=== PATIENT | male | born 1955 | race Caucasian/White ===

== ENCOUNTER 2022-08-19 14:17 | Inpatient (IN) | payer MEDICARE ==
[~2022-08-19] VITALS: Ht 177.8 cm; Wt 77.1 kg
[2022-08-19] MEDS ORDERED: LACTATED RINGER'S 1,000 ML INJ ONE (14:45)
[2022-08-19 14:53] LABS: BASOPHILS # (AUTO) 0.1 (0.0-0.1); EOSINOPHILS # (AUTO) 0.5 (0.0-0.4); EOSINOPHILS % 5.2 % (0.0-6.0); HEMATOCRIT 35.9 % (38.2-49.6); HEMOGLOBIN 11.4 g/dL (14.0-18.0); LYMPHOCYTES # (AUTO) 0.8 (1.0-3.2); LYMPHOCYTES % 7.7 % (18.0-39.1); MEAN CORPUSCULAR HEMOGLOBIN 27.6 pg (28-32); MEAN CORPUSCULAR HGB CONC 31.8 g/dL (31-35); MEAN CORPUSCULAR VOLUME 86.9 fL (81-99); MONOCYTES # (AUTO) 0.7 (0.2-0.8); MONOCYTES % 7.1 % (4.4-11.3); NEUTROPHILS # (AUTO) 8.1 (2.1-6.9); NEUTROPHILS % 78.7 % (38.7-80.0); PLATELET COUNT 508 x10e3/uL (140-360); RED BLOOD COUNT 4.13 x10e6/uL (4.3-5.7)
[2022-08-19 15:22] LABS: ALBUMIN 3.5 g/dL (3.5-5.0); ALBUMIN/GLOBULIN RATIO 1.1 (0.8-2.0); ANION GAP 14.5 mmol/L (8-16); CALCIUM 9.9 mg/dL (8.4-10.2); CREATININE, SERUM 2.48 mg/dL (0.72-1.25); POTASSIUM 3.5 mmol/L (3.5-5.1)
[2022-08-19] MEDS ORDERED: ASPIRIN 81 MG CHEW TAB PO ONE (16:00)
[2022-08-19 17:05] VITALS: PULSE 99; RESP 18; O2SAT 98
[2022-08-19] MEDS: SODIUM CHLORIDE 0.9% 1000ML 1,000 ML IV SCH (18:16)
[2022-08-19 20:00] VITALS: BP 166/80; PULSE 97; RESP 21; TEMP 98; O2SAT 100
[2022-08-19 20:20] VITALS: PULSE 97; RESP 18; O2SAT 100
[2022-08-19 21:56] VITALS: BP 166/80; PULSE 97; RESP 21; TEMP 98; O2SAT 100
[2022-08-19 22:04] VITALS: BP 166/80; PULSE 97; RESP 21; TEMP 98; O2SAT 100
[2022-08-19] MEDS ORDERED: COUMADIN (22:25)
[2022-08-19] MEDS: CLOPIDOGREL BISULFATE 75 MG TAB PO SCH (23:28)
[2022-08-19] MEDS ORDERED: SIMETHICONE 80 MG CHEW PO PRN (23:30)
[2022-08-19] MEDS ORDERED: ACETAMINOPHEN 325 MG TAB PO PRN (23:30)
[2022-08-19] MEDS ORDERED: DOCUSATE SODIUM 100 MG CAP PO PRN (23:30)
[2022-08-19] MEDS ORDERED: DEXTROSE 50% SYRINGE 50 ML IV PRN (23:30)
[2022-08-19] MEDS ORDERED: ONDANSETRON HCL INJ 2MG/ML 2ML 2 MG/ML VIAL IV PRN (23:30)
[2022-08-19] MEDS ORDERED: MELATONIN 3 MG TAB PO PRN (23:30)
[2022-08-20] VITALS (8 sets, daily range): BP systolic 124–154; BP diastolic 53–82; PULSE 64–86; RESP 17–23; TEMP 97.6–98; O2SAT 96–100
[2022-08-20] MEDS: SODIUM CHLORIDE 0.9% 1000ML 1,000 ML IV SCH (05:56)
[2022-08-20 06:21] LABS: CHOL/HDL RATIO 3.4 (3.9-4.7)
[2022-08-20 06:31] LABS: CLARITY,URINE CLEAR (CLEAR); COLOR,URINE YELLOW (YELLOW)
[2022-08-20 06:32] LABS: KETONES,URINE NEGATIVE (NEGATIVE); LEUKOCYTE ESTERASE ,URINE NEGATIVE (NEGATIVE); NITRITE,URINE NEGATIVE (NEGATIVE); PROTEIN,URINE DIPSTICK TRACE (NEGATIVE); URINE UROBILINOGEN 0.2 mg/dL (0.2 - 1)
[2022-08-20 06:33] LABS: AMPHETAMINES SCREEN,URINE POSITIVE (NEGATIVE); PHENCYCLIDINE SCREEN,URINE NEGATIVE (NEGATIVE)
[2022-08-20 06:34] LABS: BENZODIAZEPINES SCREEN,URINE NEGATIVE (NEGATIVE)
[2022-08-20 07:10] LABS: WBC,URINE (MAN) 0-5 /HPF (0-5)
[2022-08-20 07:11] LABS: BACTERIA,URINE MODERATE /HPF; RBC,URINE 0-5 /HPF (0-5)
[2022-08-20] MEDS: INSULIN REGULAR, HUMAN 100 UNIT/1 ML SQ SCH ×4 (07:30→21:00)
[2022-08-20 08:57] LABS: BASOPHILS # (AUTO) 0.1 (0.0-0.1); BASOPHILS % 1.6 % (0.0-1.0); EOSINOPHILS # (AUTO) 0.6 (0.0-0.4); EOSINOPHILS % 8.3 % (0.0-6.0); HEMATOCRIT 36.6 % (38.2-49.6); HEMOGLOBIN 11.6 g/dL (14.0-18.0); LYMPHOCYTES # (AUTO) 1.3 (1.0-3.2); LYMPHOCYTES % 17.9 % (18.0-39.1); MEAN CORPUSCULAR HEMOGLOBIN 27.6 pg (28-32); MEAN CORPUSCULAR HGB CONC 31.7 g/dL (31-35); MEAN CORPUSCULAR VOLUME 87.1 fL (81-99); MONOCYTES # (AUTO) 0.7 (0.2-0.8); MONOCYTES % 8.8 % (4.4-11.3); NEUTROPHILS # (AUTO) 4.7 (2.1-6.9); NEUTROPHILS % 63.1 % (38.7-80.0); PLATELET COUNT 405 x10e3/uL (140-360); RED CELL DISTRIBUTION WIDTH 16.1 % (11.7-14.4)
[2022-08-20 09:10] LABS: ANION GAP 16.3 mmol/L (8-16); CALCIUM 9.5 mg/dL (8.4-10.2); CREATININE, SERUM 1.46 mg/dL (0.72-1.25); POTASSIUM 4.3 mmol/L (3.5-5.1)
[2022-08-20] MEDS ORDERED: CLOPIDOGREL BISULFATE 75 MG TAB PO ONE (09:30)
[2022-08-20] MEDS: ASPIRIN 81 MG ENTERIC COATED PO SCH (09:45)
[2022-08-20] MEDS: FAMOTIDINE 20 MG TAB PO SCH ×2 (09:45→16:39)
[2022-08-20] MEDS: METOPROLOL TARTRATE 25 MG TAB PO SCH ×2 (09:46→21:11)
[2022-08-20 14:13] LABS: INR 1.25; PROTHROMBIN TIME 16.2 seconds (11.9-14.5)
[2022-08-20] MEDS: ENOXAPARIN SOD INJ 40 MG/0.4 ML SYR SC SCH (16:40)
[2022-08-20] MEDS: WARFARIN SOD 5 MG TAB PO SCH (16:42)
[2022-08-20] MEDS: ATORVASTATIN 40 MG TAB PO SCH (21:07)
[2022-08-21] VITALS (8 sets, daily range): BP systolic 133–160; BP diastolic 62–91; PULSE 60–68; RESP 17–21; TEMP 97.8–98.6; O2SAT 95–97
[2022-08-21 05:49] LABS: BASOPHILS # (AUTO) 0.1 (0.0-0.1); BASOPHILS % 1.7 % (0.0-1.0); EOSINOPHILS # (AUTO) 0.6 (0.0-0.4); EOSINOPHILS % 7.8 % (0.0-6.0); HEMATOCRIT 36.7 % (38.2-49.6); HEMOGLOBIN 11.2 g/dL (14.0-18.0); LYMPHOCYTES % 12.4 % (18.0-39.1); MEAN CORPUSCULAR HEMOGLOBIN 27.6 pg (28-32); MEAN CORPUSCULAR HGB CONC 30.5 g/dL (31-35); MEAN CORPUSCULAR VOLUME 90.4 fL (81-99); MONOCYTES # (AUTO) 0.7 (0.2-0.8); MONOCYTES % 8.5 % (4.4-11.3); NEUTROPHILS # (AUTO) 5.3 (2.1-6.9); NEUTROPHILS % 69.3 % (38.7-80.0); PLATELET COUNT 423 x10e3/uL (140-360); RED BLOOD COUNT 4.06 x10e6/uL (4.3-5.7); RED CELL DISTRIBUTION WIDTH 15.9 % (11.7-14.4)
[2022-08-21 05:56] LABS: INR 1.26; PROTHROMBIN TIME 16.3 seconds (11.9-14.5)
[2022-08-21 06:21] LABS: ALBUMIN/GLOBULIN RATIO 1.1 (0.8-2.0); ANION GAP 9.4 mmol/L (8-16); CALCIUM 9.3 mg/dL (8.4-10.2); CREATININE, SERUM 1.14 mg/dL (0.72-1.25); POTASSIUM 4.4 mmol/L (3.5-5.1)
[2022-08-21 06:45] LABS: THYROID STIMULATING HORMONE 0.155 uIU/mL (0.350-4.940)
[2022-08-21] MEDS: INSULIN REGULAR, HUMAN 100 UNIT/1 ML SQ SCH ×4 (07:30→19:59)
[2022-08-21] MEDS: CLOPIDOGREL BISULFATE 75 MG TAB PO SCH (08:40)
[2022-08-21] MEDS: ASPIRIN 81 MG ENTERIC COATED PO SCH (08:40)
[2022-08-21] MEDS: METOPROLOL TARTRATE 25 MG TAB PO SCH ×2 (08:41→21:48)
[2022-08-21] MEDS: FAMOTIDINE 20 MG TAB PO SCH ×2 (08:50→16:51)
[2022-08-21] MEDS: ENOXAPARIN SOD INJ 40 MG/0.4 ML SYR SC SCH (16:51)
[2022-08-21] MEDS: WARFARIN SOD 5 MG TAB PO SCH (16:51)
[2022-08-21] MEDS: ATORVASTATIN 40 MG TAB PO SCH (21:47)
[2022-08-22] VITALS (9 sets, daily range): BP systolic 134–164; BP diastolic 51–71; PULSE 54–83; RESP 17–19; TEMP 97.7–98.6; O2SAT 95–100
[2022-08-22 05:57] LABS: BASOPHILS # (AUTO) 0.1 (0.0-0.1); BASOPHILS % 1.5 % (0.0-1.0); EOSINOPHILS # (AUTO) 0.5 (0.0-0.4); EOSINOPHILS % 6.6 % (0.0-6.0); HEMATOCRIT 37.9 % (38.2-49.6); HEMOGLOBIN 11.8 g/dL (14.0-18.0); LYMPHOCYTES # (AUTO) 1.2 (1.0-3.2); MEAN CORPUSCULAR HEMOGLOBIN 27.3 pg (28-32); MEAN CORPUSCULAR HGB CONC 31.1 g/dL (31-35); MEAN CORPUSCULAR VOLUME 87.5 fL (81-99); MONOCYTES # (AUTO) 0.6 (0.2-0.8); MONOCYTES % 7.4 % (4.4-11.3); NEUTROPHILS # (AUTO) 5.4 (2.1-6.9); NEUTROPHILS % 69.2 % (38.7-80.0); PLATELET COUNT 387 x10e3/uL (140-360); RED BLOOD COUNT 4.33 x10e6/uL (4.3-5.7); RED CELL DISTRIBUTION WIDTH 15.9 % (11.7-14.4)
[2022-08-22 06:29] LABS: INR 1.23
[2022-08-22 06:37] LABS: ANION GAP 10.3 mmol/L (8-16); CALCIUM 9.5 mg/dL (8.4-10.2); CREATININE, SERUM 0.94 mg/dL (0.72-1.25); POTASSIUM 4.3 mmol/L (3.5-5.1)
[2022-08-22] MEDS: INSULIN REGULAR, HUMAN 100 UNIT/1 ML SQ SCH ×4 (07:30→21:00)
[2022-08-22] MEDS: CLOPIDOGREL BISULFATE 75 MG TAB PO SCH (08:35)
[2022-08-22] MEDS: FAMOTIDINE 20 MG TAB PO SCH ×2 (08:35→17:38)
[2022-08-22] MEDS: ASPIRIN 81 MG ENTERIC COATED PO SCH (08:36)
[2022-08-22] MEDS: METOPROLOL TARTRATE 25 MG TAB PO SCH ×2 (08:36→22:26)
[2022-08-22] MEDS ORDERED: WARFARIN SOD 2 MG TAB PO SCH (17:00)
[2022-08-22] MEDS ORDERED: WARFARIN SOD 5 MG TAB PO SCH (17:00)
[2022-08-22] MEDS: ENOXAPARIN SOD INJ 40 MG/0.4 ML SYR SC SCH (17:38)
[2022-08-22] MEDS: ATORVASTATIN 40 MG TAB PO SCH (22:25)
[2022-08-23] VITALS (7 sets, daily range): BP systolic 143–162; BP diastolic 63–84; PULSE 55–63; RESP 16–18; TEMP 97.8–98.5; O2SAT 96–100
[2022-08-23 05:40] LABS: BASOPHILS # (AUTO) 0.1 (0.0-0.1); BASOPHILS % 1.8 % (0.0-1.0); EOSINOPHILS # (AUTO) 0.5 (0.0-0.4); EOSINOPHILS % 6.6 % (0.0-6.0); HEMATOCRIT 38.9 % (38.2-49.6); HEMOGLOBIN 12.1 g/dL (14.0-18.0); LYMPHOCYTES # (AUTO) 1.2 (1.0-3.2); LYMPHOCYTES % 15.8 % (18.0-39.1); MEAN CORPUSCULAR HEMOGLOBIN 27.7 pg (28-32); MEAN CORPUSCULAR HGB CONC 31.1 g/dL (31-35); MONOCYTES # (AUTO) 0.7 (0.2-0.8); MONOCYTES % 9.4 % (4.4-11.3); NEUTROPHILS # (AUTO) 5.1 (2.1-6.9); PLATELET COUNT 383 x10e3/uL (140-360); RED BLOOD COUNT 4.37 x10e6/uL (4.3-5.7); RED CELL DISTRIBUTION WIDTH 15.5 % (11.7-14.4)
[2022-08-23 06:24] LABS: ANION GAP 10.4 mmol/L (8-16); CALCIUM 9.6 mg/dL (8.4-10.2); CREATININE, SERUM 0.84 mg/dL (0.72-1.25); POTASSIUM 4.4 mmol/L (3.5-5.1)
[2022-08-23] MEDS: INSULIN REGULAR, HUMAN 100 UNIT/1 ML SQ SCH ×4 (07:30→20:51)
[2022-08-23] MEDS: CLOPIDOGREL BISULFATE 75 MG TAB PO SCH (07:56)
[2022-08-23] MEDS: METOPROLOL TARTRATE 25 MG TAB PO SCH ×2 (07:56→20:48)
[2022-08-23] MEDS: ASPIRIN 81 MG ENTERIC COATED PO SCH (07:56)
[2022-08-23] MEDS: FAMOTIDINE 20 MG TAB PO SCH ×2 (07:56→17:15)
[2022-08-23 09:02] LABS: INR 1.3; PROTHROMBIN TIME 16.7 seconds (11.9-14.5)
[2022-08-23] MEDS ORDERED: WARFARIN SOD 2.5 MG TAB PO SCH (17:00)
[2022-08-23] MEDS: ENOXAPARIN SOD INJ 40 MG/0.4 ML SYR SC SCH (17:15)
[2022-08-23] MEDS: ATORVASTATIN 40 MG TAB PO SCH (20:48)
[2022-08-24 00:31] VITALS: BP 148/64; PULSE 55; RESP 18; TEMP 98; O2SAT 95
[2022-08-24 04:00] VITALS: BP 162/70; PULSE 58; RESP 18; TEMP 98.5; O2SAT 100
[2022-08-24] MEDS: INSULIN REGULAR, HUMAN 100 UNIT/1 ML SQ SCH (07:30)
[2022-08-24] MEDS ORDERED: LOPRESSOR25 MG PO (07:50)
[2022-08-24] MEDS ORDERED: ASPIRIN EC81 MG PO (07:50)
[2022-08-24] MEDS ORDERED: ATORVASTATIN CA40 MG PO (07:50)
[2022-08-24] MEDS ORDERED: PLAVIX75 MG PO (07:50)
[2022-08-24] MEDS ORDERED: FAMOTIDINE20 MG PO (07:50)
[2022-08-24] MEDS ORDERED: Warfarin Sod PO (07:50)
[2022-08-24 08:01] VITALS: BP 160/74; PULSE 60; RESP 18; TEMP 98.1; O2SAT 97
[2022-08-24 08:36] VITALS: BP 160/74; PULSE 94; RESP 18; TEMP 98.1; O2SAT 97
[2022-08-24] MEDS ORDERED: AMLODIPINE BESYLATE 5 MG TAB PO SCH (09:00)
[2022-08-24] MEDS: ASPIRIN 81 MG ENTERIC COATED PO SCH (09:17)
[2022-08-24] MEDS: FAMOTIDINE 20 MG TAB PO SCH (09:18)
[2022-08-24] MEDS: METOPROLOL TARTRATE 25 MG TAB PO SCH (09:19)
[2022-08-24] MEDS: CLOPIDOGREL BISULFATE 75 MG TAB PO SCH (09:19)
[2022-08-24 09:56] LABS: INR 1.48; PROTHROMBIN TIME 18.4 seconds (11.9-14.5)
== END 2022-08-24 09:52 | DRG 689 ==
LOC: ER 14:26 → ERHOLD 15:49 → MED/SURG3 18:45 → OBSVTOIN 08-21 07:38
PROVIDERS: ADMIT Internal Medicine; ATTEND Internal Medicine
DX: N39.0 Urinary tract infection, site not specified (principal); N17.0 Acute kidney failure with tubular necrosis; F15.90 Other stimulant use, unspecified, uncomplicated; I25.10 Atherosclerotic heart disease of native coronary artery without angina pectoris; E78.5 Hyperlipidemia, unspecified; I11.0 Hypertensive heart disease with heart failure; I50.9 Heart failure, unspecified; F17.210 Nicotine dependence, cigarettes, uncomplicated; E11.65 Type 2 diabetes mellitus with hyperglycemia; Z95.5 Presence of coronary angioplasty implant and graft; Z95.4 Presence of other heart-valve replacement; Z95.1 Presence of aortocoronary bypass graft; Z91.199 Patient's noncompliance with other medical treatment and regimen due to unspecified reason; Z20.822 Contact with and (suspected) exposure to COVID-19
CPT/HCPCS: 0223U; 36415; 71045; 80048; 80053; 80061; 80307; 80320; 81001; 82550; 82948; 83036; 83880; 84443; 84484; 85025; 85610; 93005; 93306; 93880; 94799; 96361; 99284; G0378; J0696; J1650; J7030

== ENCOUNTER 2022-08-28 13:29 | Inpatient (IN) | payer MEDICARE ==
[~2022-08-28] VITALS: Ht 177.8 cm; Wt 77.6 kg
[~2022-08-28 13:29] MED LIST: ASPIRIN EC81 MG PO; ATORVASTATIN CA40 MG PO; COUMADIN; FAMOTIDINE20 MG PO; LOPRESSOR25 MG PO; PLAVIX75 MG PO; Warfarin Sod PO
[2022-08-28 13:55] LABS: BASOPHILS # (AUTO) 0.2 (0.0-0.1); EOSINOPHILS # (AUTO) 0.2 (0.0-0.4); HEMATOCRIT 37.3 % (38.2-49.6); LYMPHOCYTES # (AUTO) 1.5 (1.0-3.2); LYMPHOCYTES % 15.5 % (18.0-39.1); MEAN CORPUSCULAR HEMOGLOBIN 27.5 pg (28-32); MEAN CORPUSCULAR HGB CONC 32.2 g/dL (31-35); MEAN CORPUSCULAR VOLUME 85.4 fL (81-99); MONOCYTES # (AUTO) 1.2 (0.2-0.8); MONOCYTES % 12.6 % (4.4-11.3); NEUTROPHILS # (AUTO) 6.4 (2.1-6.9); NEUTROPHILS % 67.7 % (38.7-80.0); PLATELET COUNT 339 x10e3/uL (140-360); RED BLOOD COUNT 4.37 x10e6/uL (4.3-5.7); RED CELL DISTRIBUTION WIDTH 15.8 % (11.7-14.4)
[2022-08-28 14:00] LABS: INR 1.13
[2022-08-28] MEDS ORDERED: SODIUM CHLORIDE 0.9% 1000ML 1,000 ML IV STA (14:06)
[2022-08-28 14:10] LABS: ALBUMIN/GLOBULIN RATIO 1.3 (0.8-2.0); ANION GAP 17.1 mmol/L (8-16); CALCIUM 10.2 mg/dL (8.4-10.2); CREATININE, SERUM 3.12 mg/dL (0.72-1.25); POTASSIUM 5.1 mmol/L (3.5-5.1)
[2022-08-28] MEDS ORDERED: Morphine 2mg Syringe 2 MG/ML SYR IV PRN (16:15)
[2022-08-28 16:20] VITALS: PULSE 73; RESP 20; O2SAT 97
[2022-08-28] MEDS ORDERED: WARFARIN SOD 5 MG TAB PO ONE (17:00)
[2022-08-28] MEDS: FAMOTIDINE 20 MG TAB PO SCH (17:01)
[2022-08-28] MEDS: SODIUM CHLORIDE 0.9% 1000ML 1,000 ML IV SCH (17:01)
[2022-08-28] MEDS ORDERED: HEPARIN SOD (PORCINE) 5,000 UNIT/ML VIAL IV ONE (20:45)
[2022-08-28] MEDS ORDERED: HEPARIN 25,000 UNIT/D5W 250ML 1,300 UNIT in DEXTROSE 5% 250ML 250 ML IV SCH (20:45)
[2022-08-28 21:29] VITALS: BP 122/72; PULSE 66; RESP 20; TEMP 97.8; O2SAT 97
[2022-08-28 21:48] VITALS: BP 122/72; PULSE 66; RESP 20; TEMP 97.8; O2SAT 97
[2022-08-29] VITALS (7 sets, daily range): BP systolic 123–136; BP diastolic 49–65; PULSE 58–69; RESP 16–20; TEMP 98.1–98.8; O2SAT 95–100
[2022-08-29] MEDS ORDERED: HEPARIN 25,000 UNIT/D5W 250ML 1,300 UNIT in DEXTROSE 5% 250ML 250 ML IV SCH (01:00)
[2022-08-29] MEDS ORDERED: HEPARIN SOD (PORCINE) 5,000 UNIT/ML VIAL IV ONE (01:00)
[2022-08-29] MEDS: ATORVASTATIN 40 MG TAB PO SCH ×2 (01:26→21:41)
[2022-08-29] MEDS: METOPROLOL TARTRATE 25 MG TAB PO SCH ×3 (01:26→21:00)
[2022-08-29] MEDS: SODIUM CHLORIDE 0.9% 1000ML 1,000 ML IV SCH ×3 (01:28→16:55)
[2022-08-29 05:30] LABS: BASOPHILS # (AUTO) 0.2 (0.0-0.1); BASOPHILS % 2.1 % (0.0-1.0); EOSINOPHILS # (AUTO) 0.8 (0.0-0.4); EOSINOPHILS % 10.6 % (0.0-6.0); HEMOGLOBIN 10.7 g/dL (14.0-18.0); LYMPHOCYTES # (AUTO) 1.5 (1.0-3.2); LYMPHOCYTES % 20.8 % (18.0-39.1); MEAN CORPUSCULAR HEMOGLOBIN 27.5 pg (28-32); MEAN CORPUSCULAR HGB CONC 31.5 g/dL (31-35); MEAN CORPUSCULAR VOLUME 87.4 fL (81-99); MONOCYTES # (AUTO) 0.8 (0.2-0.8); MONOCYTES % 10.6 % (4.4-11.3); NEUTROPHILS # (AUTO) 3.9 (2.1-6.9); NEUTROPHILS % 55.8 % (38.7-80.0); PLATELET COUNT 273 x10e3/uL (140-360); RED BLOOD COUNT 3.89 x10e6/uL (4.3-5.7); RED CELL DISTRIBUTION WIDTH 15.5 % (11.7-14.4)
[2022-08-29 05:37] LABS: INR 1.27; PROTHROMBIN TIME 16.4 seconds (11.9-14.5)
[2022-08-29 05:47] LABS: MAGNESIUM 1.8 MG/DL (1.3-2.1); PHOSPHORUS 3.3 MG/DL (2.3-4.7)
[2022-08-29 05:48] LABS: ANION GAP 12.4 mmol/L (8-16); CREATININE, SERUM 1.46 mg/dL (0.72-1.25); POTASSIUM 4.4 mmol/L (3.5-5.1)
[2022-08-29] MEDS: FAMOTIDINE 20 MG TAB PO SCH ×2 (08:46→16:55)
[2022-08-29] MEDS: CLOPIDOGREL BISULFATE 75 MG TAB PO SCH (08:47)
[2022-08-29] MEDS ORDERED: ASPIRIN 81 MG ENTERIC COATED PO SCH (09:00)
[2022-08-29] MEDS: HEPARIN 25,000 UNIT/D5W 250ML 1,300 UNIT in DEXTROSE 5% 250ML 250 ML IV SCH (16:30)
[2022-08-29] MEDS ORDERED: WARFARIN SOD 5 MG TAB PO SCH ×2 (17:00)
[2022-08-30] MEDS: HEPARIN 25,000 UNIT/D5W 250ML 1,300 UNIT in DEXTROSE 5% 250ML 250 ML IV SCH (02:00)
[2022-08-30] MEDS: SODIUM CHLORIDE 0.9% 1000ML 1,000 ML IV SCH ×3 (02:01→16:47)
[2022-08-30 04:00] VITALS: BP 132/75; PULSE 60; RESP 18; TEMP 98.6; O2SAT 96
[2022-08-30 05:49] LABS: BASOPHILS # (AUTO) 0.1 (0.0-0.1); BASOPHILS % 1.8 % (0.0-1.0); EOSINOPHILS # (AUTO) 0.8 (0.0-0.4); EOSINOPHILS % 11.5 % (0.0-6.0); HEMATOCRIT 35.4 % (38.2-49.6); HEMOGLOBIN 10.9 g/dL (14.0-18.0); LYMPHOCYTES # (AUTO) 1.4 (1.0-3.2); LYMPHOCYTES % 19.1 % (18.0-39.1); MEAN CORPUSCULAR HEMOGLOBIN 27.7 pg (28-32); MEAN CORPUSCULAR HGB CONC 30.8 g/dL (31-35); MEAN CORPUSCULAR VOLUME 89.8 fL (81-99); MONOCYTES # (AUTO) 0.6 (0.2-0.8); MONOCYTES % 8.6 % (4.4-11.3); NEUTROPHILS # (AUTO) 4.3 (2.1-6.9); NEUTROPHILS % 58.9 % (38.7-80.0); PLATELET COUNT 235 x10e3/uL (140-360); RED BLOOD COUNT 3.94 x10e6/uL (4.3-5.7); RED CELL DISTRIBUTION WIDTH 15.1 % (11.7-14.4)
[2022-08-30 05:59] LABS: INR 1.33
[2022-08-30 06:20] LABS: ALBUMIN/GLOBULIN RATIO 1.1 (0.8-2.0); ANION GAP 12.6 mmol/L (8-16); CALCIUM 8.8 mg/dL (8.4-10.2); CREATININE, SERUM 0.91 mg/dL (0.72-1.25); POTASSIUM 4.6 mmol/L (3.5-5.1)
[2022-08-30 08:39] VITALS: BP 142/64; PULSE 51; RESP 20; TEMP 98.7; O2SAT 97
[2022-08-30 08:45] VITALS: BP 142/64; PULSE 57; RESP 20; TEMP 98.7; O2SAT 97
[2022-08-30] MEDS: CLOPIDOGREL BISULFATE 75 MG TAB PO SCH (08:55)
[2022-08-30] MEDS: FAMOTIDINE 20 MG TAB PO SCH ×2 (08:55→16:47)
[2022-08-30] MEDS: METOPROLOL TARTRATE 25 MG TAB PO SCH ×2 (08:56→20:36)
[2022-08-30] MEDS ORDERED: WARFARIN SOD 5 MG TAB PO ONE (10:30)
[2022-08-30 12:36] VITALS: BP 143/61; PULSE 56; RESP 19; TEMP 98.1; O2SAT 95
[2022-08-30 16:55] VITALS: BP 143/71; PULSE 54; RESP 16; TEMP 98.4; O2SAT 97
[2022-08-30] MEDS: NICOTINE 14 MG/EA PATCH TOP SCH (17:43)
[2022-08-30 20:00] VITALS: BP 153/66; PULSE 64; RESP 18; TEMP 98.9; O2SAT 99
[2022-08-30] MEDS: ATORVASTATIN 40 MG TAB PO SCH (20:36)
[2022-08-31] VITALS: BP 157/78; PULSE 67; RESP 18; TEMP 97.4; O2SAT 98
[2022-08-31] MEDS: SODIUM CHLORIDE 0.9% 1000ML 1,000 ML IV SCH (03:33)
[2022-08-31] MEDS: HEPARIN 25,000 UNIT/D5W 250ML 1,300 UNIT in DEXTROSE 5% 250ML 250 ML IV SCH (03:42)
[2022-08-31 04:00] VITALS: BP 152/75; PULSE 63; RESP 18; TEMP 98.9; O2SAT 97
[2022-08-31] MEDS: FAMOTIDINE 20 MG TAB PO SCH (07:42)
[2022-08-31 08:54] LABS: INR 2.41; PROTHROMBIN TIME 27.5 seconds (11.9-14.5)
[2022-08-31] MEDS: CLOPIDOGREL BISULFATE 75 MG TAB PO SCH (08:56)
[2022-08-31] MEDS: METOPROLOL TARTRATE 25 MG TAB PO SCH (08:57)
[2022-08-31] MEDS: NICOTINE 14 MG/EA PATCH TOP SCH (08:58)
[2022-08-31] MEDS ORDERED: ATORVASTATIN CA40 MG PO (09:48)
[2022-08-31] MEDS ORDERED: LOPRESSOR25 MG PO (09:49)
[2022-08-31] MEDS ORDERED: FAMOTIDINE20 MG PO (09:49)
[2022-08-31] MEDS ORDERED: PLAVIX75 MG PO (09:49)
[2022-08-31] MEDS ORDERED: WARFARIN SODIUM5 MG PO (09:49)
[2022-08-31 09:52] VITALS: BP 122/101; PULSE 70; RESP 18; TEMP 97.6; O2SAT 95
[2022-08-31] MEDS ORDERED: WARFARIN SOD 5 MG TAB PO ONE (10:30)
[2022-08-31] MEDS ORDERED: WARFARIN SOD 5 MG TAB PO SCH (17:00)
== END 2022-08-31 10:43 | disposition home or self-care (01) | DRG 683 ==
LOC: ER 13:46 → ERHOLD 16:04 → MED/SURG 19:57 → OBSVTOIN 08-29 16:12
PROVIDERS: ADMIT Internal Medicine; ATTEND Internal Medicine
DX: N17.9 Acute kidney failure, unspecified (principal); D68.69 Other thrombophilia; M62.82 Rhabdomyolysis; R07.9 Chest pain, unspecified; F15.90 Other stimulant use, unspecified, uncomplicated; I25.10 Atherosclerotic heart disease of native coronary artery without angina pectoris; Z95.5 Presence of coronary angioplasty implant and graft; Z95.2 Presence of prosthetic heart valve; E78.5 Hyperlipidemia, unspecified; Z95.1 Presence of aortocoronary bypass graft; Z79.01 Long term (current) use of anticoagulants; Z59.00 Homelessness unspecified; Z87.440 Personal history of urinary (tract) infections; E86.0 Dehydration; Z20.822 Contact with and (suspected) exposure to COVID-19; F17.210 Nicotine dependence, cigarettes, uncomplicated
CPT/HCPCS: 36415; 71045; 80048; 80053; 82550; 82948; 83735; 83880; 84100; 84484; 85025; 85610; 85730; 93005; 94799; 99284; G0378; J1644; J7030

== ENCOUNTER 2022-09-10 19:34 | Observation (INO) | payer MEDICARE ==
[~2022-09-10] VITALS: Ht 177.8 cm; Wt 77.3 kg
[~2022-09-10 19:34] MED LIST changes: +WARFARIN SODIUM5 MG PO
[2022-09-10] MEDS ORDERED: SODIUM CHLORIDE 0.9% 1000ML 1,000 ML IV ONE ×2 (20:00→21:30)
[2022-09-10] MEDS ORDERED: SODIUM CHLORIDE FLUSH 10 ML SYR IV PRN (20:00)
[2022-09-10 20:17] LABS: BASOPHILS # (AUTO) 0.1 (0.0-0.1); BASOPHILS % 1.1 % (0.0-1.0); EOSINOPHILS # (AUTO) 0.3 (0.0-0.4); EOSINOPHILS % 3.2 % (0.0-6.0); HEMOGLOBIN 10.9 g/dL (14.0-18.0); LYMPHOCYTES # (AUTO) 1.2 (1.0-3.2); LYMPHOCYTES % 12.1 % (18.0-39.1); MEAN CORPUSCULAR HEMOGLOBIN 27.7 pg (28-32); MEAN CORPUSCULAR HGB CONC 32.1 g/dL (31-35); MEAN CORPUSCULAR VOLUME 86.5 fL (81-99); MONOCYTES # (AUTO) 0.9 (0.2-0.8); MONOCYTES % 8.6 % (4.4-11.3); NEUTROPHILS # (AUTO) 7.5 (2.1-6.9); NEUTROPHILS % 74.7 % (38.7-80.0); PLATELET COUNT 472 x10e3/uL (140-360); RED BLOOD COUNT 3.93 x10e6/uL (4.3-5.7); RED CELL DISTRIBUTION WIDTH 14.3 % (11.7-14.4)
[2022-09-10 20:25] LABS: INR 1.25; PROTHROMBIN TIME 16.5 seconds (11.9-14.5)
[2022-09-10 20:26] LABS: PARTIAL THROMBOPLASTIN TIME 30.3 seconds (23.8-35.5)
[2022-09-10 20:32] LABS: ALBUMIN 3.2 g/dL (3.5-5.0); ALBUMIN/GLOBULIN RATIO 1.1 (0.8-2.0); ANION GAP 13.8 mmol/L (8-16); CALCIUM 9.4 mg/dL (8.4-10.2); CREATININE, SERUM 1.51 mg/dL (0.72-1.25); POTASSIUM 4.8 mmol/L (3.5-5.1)
[2022-09-10] MEDS ORDERED: SODIUM CHLORIDE 0.9% 1000ML 1,000 ML ONE (21:24)
[2022-09-10 22:59] LABS: ALBUMIN/GLOBULIN RATIO 1.2 (0.8-2.0); ANION GAP 11.4 mmol/L (8-16); CALCIUM 8.7 mg/dL (8.4-10.2); CREATININE, SERUM 1.31 mg/dL (0.72-1.25); POTASSIUM 4.4 mmol/L (3.5-5.1)
[2022-09-10] MEDS ORDERED: SODIUM CHLORIDE 0.9% 1000ML 1,000 ML IV SCH (23:45)
[2022-09-10] MEDS ORDERED: ASPIRIN 81 MG CHEW TAB PO ONE (23:45)
[2022-09-10] MEDS ORDERED: ONDANSETRON HCL INJ 2MG/ML 2ML 2 MG/ML VIAL IV PRN (23:45)
[2022-09-10 23:56] VITALS: BP 137/70; PULSE 84; RESP 20; TEMP 97.6; O2SAT 95
[2022-09-11] MEDS ORDERED: HEPARIN 25,000 UNIT/D5W 250ML 900 UNIT in DEXTROSE 5% 250ML 250 ML IV SCH ×2
[2022-09-11] MEDS ORDERED: HEPARIN SOD (PORCINE) 5,000 UNIT/ML VIAL IV ONE
[2022-09-11 00:44] VITALS: BP 134/78; RESP 18; O2SAT 100
[2022-09-11] MEDS ORDERED: HEPARIN 25,000 UNIT DRIP IV ONE (02:55)
[2022-09-11 05:50] LABS: BASOPHILS # (AUTO) 0.1 (0.0-0.1); BASOPHILS % 1.4 % (0.0-1.0); EOSINOPHILS # (AUTO) 0.5 (0.0-0.4); HEMATOCRIT 33.5 % (38.2-49.6); HEMOGLOBIN 10.6 g/dL (14.0-18.0); LYMPHOCYTES # (AUTO) 1.2 (1.0-3.2); LYMPHOCYTES % 17.2 % (18.0-39.1); MEAN CORPUSCULAR HEMOGLOBIN 27.7 pg (28-32); MEAN CORPUSCULAR HGB CONC 31.6 g/dL (31-35); MEAN CORPUSCULAR VOLUME 87.7 fL (81-99); MONOCYTES # (AUTO) 0.7 (0.2-0.8); MONOCYTES % 10.1 % (4.4-11.3); NEUTROPHILS # (AUTO) 4.6 (2.1-6.9); NEUTROPHILS % 64.2 % (38.7-80.0); PLATELET COUNT 374 x10e3/uL (140-360); RED BLOOD COUNT 3.82 x10e6/uL (4.3-5.7); RED CELL DISTRIBUTION WIDTH 14.2 % (11.7-14.4)
[2022-09-11 06:16] VITALS: BP 134/78; RESP 18; TEMP 97.6; O2SAT 100
[2022-09-11 06:16] LABS: ALBUMIN 2.9 g/dL (3.5-5.0); ALBUMIN/GLOBULIN RATIO 1.1 (0.8-2.0); ANION GAP 9.2 mmol/L (8-16); CREATININE, SERUM 1.08 mg/dL (0.72-1.25); POTASSIUM 4.2 mmol/L (3.5-5.1)
[2022-09-11 06:25] VITALS: BP 134/78; PULSE 84; RESP 18; TEMP 97.6; O2SAT 100
[2022-09-11] MEDS ORDERED: MELATONIN 3 MG TAB PO PRN (07:15)
[2022-09-11] MEDS ORDERED: SIMETHICONE 80 MG CHEW PO PRN (07:15)
[2022-09-11] MEDS ORDERED: ACETAMINOPHEN 325 MG TAB PO PRN (07:15)
[2022-09-11] MEDS ORDERED: METOPROLOL TARTRATE INJ 1 MG/ML VIAL IV PRN (07:15)
[2022-09-11] MEDS ORDERED: DOCUSATE SODIUM 100 MG CAP PO PRN (07:15)
[2022-09-11] MEDS ORDERED: FAMOTIDINE 20 MG TAB PO SCH (07:30)
[2022-09-11 08:14] VITALS: BP 139/62; PULSE 68; RESP 18; TEMP 98.2; O2SAT 98
[2022-09-11 08:58] VITALS: BP 139/62; PULSE 68; RESP 18; TEMP 98.2; O2SAT 98
[2022-09-11] MEDS ORDERED: ENOXAPARIN INJ 80 MG/0.8 ML SYR SC SCH (09:00)
[2022-09-11] MEDS ORDERED: CLOPIDOGREL BISULFATE 75 MG TAB PO SCH (09:00)
[2022-09-11] MEDS ORDERED: METOPROLOL TARTRATE 25 MG TAB PO SCH (09:00)
[2022-09-11] MEDS ORDERED: LOPRESSOR25 MG PO (09:28)
[2022-09-11] MEDS ORDERED: PLAVIX75 MG PO (09:28)
[2022-09-11] MEDS ORDERED: Warfarin Sod PO (09:28)
[2022-09-11] MEDS ORDERED: FAMOTIDINE20 MG PO (09:28)
[2022-09-11] MEDS ORDERED: ATORVASTATIN CA40 MG PO (09:28)
[2022-09-11] MEDS ORDERED: WARFARIN SODIUM3 MG PO (09:29)
[2022-09-11] MEDS ORDERED: WARFARIN SOD 5 MG TAB PO SCH (17:00)
[2022-09-11] MEDS ORDERED: ATORVASTATIN 40 MG TAB PO SCH (21:00)
== END 2022-09-11 10:57 | disposition home or self-care (01) ==
LOC: ER 19:37 → ERHOLD 23:39 → MED/SURG3 23:56 → INTOOBSV 09-11 08:55 → OBSVTOIN 09-11 08:55
PROVIDERS: ADMIT Internal Medicine; ATTEND Internal Medicine
DX: E86.0 Dehydration (principal); N17.9 Acute kidney failure, unspecified; R42 Dizziness and giddiness; R50.9 Fever, unspecified; I11.0 Hypertensive heart disease with heart failure; I50.9 Heart failure, unspecified; I25.10 Atherosclerotic heart disease of native coronary artery without angina pectoris; Z95.5 Presence of coronary angioplasty implant and graft; I48.91 Unspecified atrial fibrillation; Z79.01 Long term (current) use of anticoagulants; Z95.2 Presence of prosthetic heart valve; Z91.148 Patient's other noncompliance with medication regimen for other reason; E78.5 Hyperlipidemia, unspecified; J44.9 Chronic obstructive pulmonary disease, unspecified; F17.210 Nicotine dependence, cigarettes, uncomplicated; E11.9 Type 2 diabetes mellitus without complications; R79.1 Abnormal coagulation profile; B19.20 Unspecified viral hepatitis C without hepatic coma; Z79.02 Long term (current) use of antithrombotics/antiplatelets; Z59.00 Homelessness unspecified; Z11.52 Encounter for screening for COVID-19
CPT/HCPCS: 0223U; 36415 ×2; 71045; 80053 ×2; 82550; 82948; 83880; 84484 ×2; 85025 ×2; 85610; 85730 ×2; 93005; 94760; 96361; 99284; G0378 ×2; J1644; J7030 ×2

== ENCOUNTER 2023-01-15 09:53 | Emergency (ER) | payer MEDICARE ==
[~2023-01-15] VITALS: Ht 177.8 cm; Wt 77.1 kg
[~2023-01-15 09:53] MED LIST changes: +WARFARIN SODIUM3 MG PO
[2023-01-15] MEDS ORDERED: SODIUM CHLORIDE 0.9% 1000ML 1,000 ML IV ONE (10:00)
[2023-01-15 10:34] LABS: BASOPHILS # (AUTO) 0.1 (0.0-0.1); BASOPHILS % 1.4 % (0.0-1.0); EOSINOPHILS # (AUTO) 0.3 (0.0-0.4); EOSINOPHILS % 3.4 % (0.0-6.0); HEMATOCRIT 36.1 % (38.2-49.6); HEMOGLOBIN 11.7 g/dL (14.0-18.0); LYMPHOCYTES # (AUTO) 1.2 (1.0-3.2); MEAN CORPUSCULAR HEMOGLOBIN 27.7 pg (28-32); MEAN CORPUSCULAR HGB CONC 32.4 g/dL (31-35); MEAN CORPUSCULAR VOLUME 85.3 fL (81-99); MONOCYTES # (AUTO) 0.7 (0.2-0.8); MONOCYTES % 7.2 % (4.4-11.3); NEUTROPHILS # (AUTO) 7.7 (2.1-6.9); NEUTROPHILS % 75.7 % (38.7-80.0); PLATELET COUNT 325 x10e3/uL (140-360); RED BLOOD COUNT 4.23 x10e6/uL (4.3-5.7); RED CELL DISTRIBUTION WIDTH 13.3 % (11.7-14.4); WHITE BLOOD COUNT 10.14 x10e3/uL (4.8-10.8)
[2023-01-15 10:42] LABS: ALBUMIN 3.4 g/dL (3.5-5.0); ALBUMIN/GLOBULIN RATIO 1.1 (0.8-2.0); ANION GAP 11.7 mmol/L (8-16); CREATININE, SERUM 1.11 mg/dL (0.72-1.25); POTASSIUM 3.7 mmol/L (3.5-5.1)
[2023-01-15] MEDS ORDERED: BISMUTH SUBSALICYLATE 262 MG TAB PO ONE (14:30)
[2023-01-15 15:24] VITALS: O2SAT 99
== END 2023-01-15 15:31 | disposition home or self-care (01) ==
LOC: ER 09:57
DX: R19.7 Diarrhea, unspecified (principal); S22.31XA Fracture of one rib, right side, initial encounter for closed fracture; W22.09XA Striking against other stationary object, initial encounter; I12.0 Hypertensive chronic kidney disease with stage 5 chronic kidney disease or end stage renal disease; E11.22 Type 2 diabetes mellitus with diabetic chronic kidney disease; N18.6 End stage renal disease; K76.9 Liver disease, unspecified; I48.91 Unspecified atrial fibrillation; I50.9 Heart failure, unspecified; Z95.1 Presence of aortocoronary bypass graft; Z95.4 Presence of other heart-valve replacement; Z95.5 Presence of coronary angioplasty implant and graft
CPT/HCPCS: 36415; 71101; 80053; 83690; 85025; 99284; J7030

== ENCOUNTER 2023-10-07 15:21 | Emergency (ER) | payer MEDICARE ==
[~2023-10-07] VITALS: Ht 177.8 cm; Wt 77.1 kg
[2023-10-07 15:25] VITALS: PULSE 107; RESP 18; TEMP 98.5
[2023-10-07 15:50] LABS: BASOPHILS # (AUTO) 0.1 (0.0-0.1); BASOPHILS % 1.2 % (0.0-1.0); EOSINOPHILS # (AUTO) 0.3 (0.0-0.4); EOSINOPHILS % 2.8 % (0.0-6.0); HEMATOCRIT 36.1 % (38.2-49.6); HEMOGLOBIN 11.1 g/dL (14.0-18.0); LYMPHOCYTES # (AUTO) 1.2 (1.0-3.2); LYMPHOCYTES % 11.9 % (18.0-39.1); MEAN CORPUSCULAR HEMOGLOBIN 27.3 pg (28-32); MEAN CORPUSCULAR HGB CONC 30.7 g/dL (31-35); MEAN CORPUSCULAR VOLUME 88.9 fL (81-99); MONOCYTES # (AUTO) 0.6 (0.2-0.8); MONOCYTES % 5.9 % (4.4-11.3); NEUTROPHILS # (AUTO) 7.7 (2.1-6.9); NEUTROPHILS % 78.1 % (38.7-80.0); PLATELET COUNT 333 x10e3/uL (140-360); RED BLOOD COUNT 4.06 x10e6/uL (4.3-5.7); RED CELL DISTRIBUTION WIDTH 14.7 % (11.7-14.4); WHITE BLOOD COUNT 9.85 x10e3/uL (4.8-10.8)
[2023-10-07] MEDS: SODIUM CHLORIDE 0.9% 1000ML 1,000 ML IV ONE (15:50)
[2023-10-07] MEDS ORDERED: SODIUM CHLORIDE 0.9% 1000ML 1,000 ML ONE (15:50)
[2023-10-07 16:04] LABS: ALBUMIN 3.3 g/dL (3.5-5.0); ALBUMIN/GLOBULIN RATIO 1.2 (0.8-2.0); ANION GAP 11.9 mmol/L (8-16); BILIRUBIN,TOTAL 0.3 mg/dL (0.2-1.2); CALCIUM 9.3 mg/dL (8.4-10.2); CREATININE, SERUM 1.14 mg/dL (0.72-1.25); POTASSIUM 3.9 mmol/L (3.5-5.1); TOTAL PROTEIN 6.1 g/dL (6.5-8.1)
[2023-10-07 16:13] LABS: MAGNESIUM 1.9 MG/DL (1.3-2.1)
[2023-10-07 16:18] LABS: TROPONIN I 0.042 ng/mL (0-0.300)
[2023-10-07 18:26] VITALS: BP 127/95; PULSE 91; RESP 18; TEMP 98.3; O2SAT 99
== END 2023-10-07 18:28 | disposition home or self-care (01) ==
LOC: ER 15:50
DX: E86.0 Dehydration (principal); T67.8XXA Other effects of heat and light, initial encounter; X30.XXXA Exposure to excessive natural heat, initial encounter; I13.2 Hypertensive heart and chronic kidney disease with heart failure and with stage 5 chronic kidney disease, or end stage renal disease; I50.9 Heart failure, unspecified; N18.6 End stage renal disease; E11.22 Type 2 diabetes mellitus with diabetic chronic kidney disease; I48.91 Unspecified atrial fibrillation; J44.9 Chronic obstructive pulmonary disease, unspecified; I45.2 Bifascicular block; F41.9 Anxiety disorder, unspecified; K76.9 Liver disease, unspecified; Z11.52 Encounter for screening for COVID-19; Z87.891 Personal history of nicotine dependence; Z95.2 Presence of prosthetic heart valve; Z95.5 Presence of coronary angioplasty implant and graft; Y92.007 Garden or yard of unspecified non-institutional (private) residence as the place of occurrence of the external cause; Z79.02 Long term (current) use of antithrombotics/antiplatelets; Z79.01 Long term (current) use of anticoagulants; Z79.85 Long-term (current) use of injectable non-insulin antidiabetic drugs; Z79.899 Other long term (current) drug therapy
CPT/HCPCS: 36415; 71045; 80053; 82550; 83735; 84484; 85025; 93005; 99284; J7030; U0002

== ENCOUNTER 2024-10-21 19:59 | Emergency (ER) | payer MEDICARE ==
[~2024-10-21] VITALS: Ht 170.2 cm; Wt 72.1 kg
[~2024-10-21 19:59] MED LIST changes: +FUROSEMIDE20 MG PO; +LOSARTAN POTASS25 MG PO; +PREDNISONE50 MG PO; +VENTOLIN HFA18 GM INH
[2024-10-21 20:00] VITALS: PULSE 87; RESP 19; TEMP 98.8
[2024-10-21] MEDS: KETOROLAC TROMETHAMINE 60 MG/2 ML VIAL IM STA (21:05)
[2024-10-21] MEDS ORDERED: KETOROLAC TROME10 MG PO (22:09)
[2024-10-21 22:19] VITALS: BP 151/68; PULSE 75; RESP 20; TEMP 98.5; O2SAT 99
== END 2024-10-21 22:21 | disposition home or self-care (01) ==
LOC: ER 20:01
DX: R07.89 Other chest pain (principal); M54.6 Pain in thoracic spine; K80.20 Calculus of gallbladder without cholecystitis without obstruction; I12.0 Hypertensive chronic kidney disease with stage 5 chronic kidney disease or end stage renal disease; E11.22 Type 2 diabetes mellitus with diabetic chronic kidney disease; N18.6 End stage renal disease; I50.9 Heart failure, unspecified; J44.9 Chronic obstructive pulmonary disease, unspecified; K76.9 Liver disease, unspecified; R94.31 Abnormal electrocardiogram [ECG] [EKG]
CPT/HCPCS: 71250; 93005; 99284; J1885

== ENCOUNTER 2024-11-02 14:02 | Emergency (ER) | payer MEDICARE ==
[~2024-11-02] VITALS: Ht 170.2 cm; Wt 68.0 kg
[~2024-11-02 14:02] MED LIST changes: +KETOROLAC TROME10 MG PO
[2024-11-02 14:27] VITALS: PULSE 95; RESP 18; TEMP 98.6; O2SAT 98
[2024-11-02 14:37] LABS: BASOPHILS % 1.4 % (0.0-1.0); EOSINOPHILS % 13.1 % (0.0-6.0); LYMPHOCYTES % 21.0 % (18.0-39.1); MONOCYTES % 10.0 % (4.4-11.3); NEUTROPHILS % 54.3 % (38.7-80.0); RED CELL DISTRIBUTION WIDTH 14.0 % (11.7-14.4)
[2024-11-02 15:06] LABS: EST GLOMERULAR FILTRATION RATE 63.0 ML/MIN (>=60)
[2024-11-02] MEDS ORDERED: LOVENOX80 MG/0.8 SC (15:27)
[2024-11-02] MEDS ORDERED: WARFARIN SODIUM5 MG PO (15:28)
== END 2024-11-02 15:58 | disposition home or self-care (01) ==
LOC: ER 14:13
DX: R07.89 Other chest pain (principal); G89.29 Other chronic pain; I12.0 Hypertensive chronic kidney disease with stage 5 chronic kidney disease or end stage renal disease; E11.22 Type 2 diabetes mellitus with diabetic chronic kidney disease; N18.6 End stage renal disease; J44.9 Chronic obstructive pulmonary disease, unspecified; I50.9 Heart failure, unspecified; I48.91 Unspecified atrial fibrillation; K76.9 Liver disease, unspecified; F41.9 Anxiety disorder, unspecified; R94.31 Abnormal electrocardiogram [ECG] [EKG]; Z95.1 Presence of aortocoronary bypass graft; Z95.4 Presence of other heart-valve replacement; Z95.5 Presence of coronary angioplasty implant and graft
CPT/HCPCS: 36415; 71045; 80053; 84484; 85025; 93005; 99284